=== PATIENT | male | born 1985 | race African-American/Black ===

== ENCOUNTER 2018-05-14 00:12 | Emergency (ER) | payer MEDICAID ==
[~2018-05-14] VITALS: Ht 175.3 cm; Wt 78.0 kg
[~2018-05-14 00:12] MED LIST: LANTUS SOLO STAR
[2018-05-14] MEDS ORDERED: SODIUM CHLORIDE 0.9% 1,000 ML IV ONE ×2 (06:15→07:15)
[2018-05-14 06:28] VITALS: BP 135/82
[2018-05-14 06:41] LABS: BASOPHILS % 1.9 % (0.0-2.0); EOSINOPHILS % 4.7 % (0.0-5.0); HEMATOCRIT. 41.6 % (42.0-52.0); HEMOGLOBIN. 14.4 g/dL (14.0-18.0); LYMPHOCYTES % 46.1 % (20.0-50.0); MEAN CORPUSCULAR HEMOGLOBIN 31.4 pg (28.0-32.0); MEAN CORPUSCULAR VOLUME 90.7 fL (80.0-94.0); MEAN PLATELET VOLUME 6.4 fl (7.4-10.4); MONOCYTES % 9.5 % (2.0-8.0); NEUTROPHILS % 37.8 % (40.0-76.0); PLATELET 702 x1000/uL (130-400); RED BLOOD CELL COUNT 4.58 mill/uL (4.7-6.1)
[2018-05-14 06:47] LABS: CHLORIDE 101 mEq/L (98-107)
[2018-05-14 06:54] LABS: BETA HYDROXYBUTYRATE 0.2 mMol/L (0.0-0.3)
[2018-05-14] MEDS ORDERED: INS NPH/REG HM 70-30 100 UNITS/ML 10ML VIAL (HUMULIN 70-30) SUBCUT ONE (07:15)
== END 2018-05-14 07:45 | disposition home or self-care (01) ==
LOC: ER 00:12
DX: E11.65 Type 2 diabetes mellitus with hyperglycemia (principal); F12.10 Cannabis abuse, uncomplicated; Z79.4 Long term (current) use of insulin
CPT/HCPCS: 36415; 80053; 82010; 82962; 85025; 96372; 99283; J1815; J7030

== ENCOUNTER 2018-08-05 16:19 | Emergency (ER) | payer MEDICAID ==
[~2018-08-05] VITALS: Ht 175.3 cm; Wt 78.0 kg
[2018-08-05 17:15] VITALS: BP 116/69
== END 2018-08-05 19:57 | disposition home or self-care (01) ==
LOC: ER 16:44
DX: E11.9 Type 2 diabetes mellitus without complications (principal); F12.10 Cannabis abuse, uncomplicated
CPT/HCPCS: 99283

== ENCOUNTER 2019-03-03 19:23 | Emergency (ER) | payer MEDICAID ==
[~2019-03-03] VITALS: Ht 175.3 cm; Wt 78.0 kg
[2019-03-03 20:14] VITALS: BP 149/83
[2019-03-03] MEDS ORDERED: ONDANSETRON 4MG ODT PO ONE (20:45)
[2019-03-03] MEDS ORDERED: AMOXICILLIN/POTASSIUM CLAVULANATE 875/125MG TAB PO ONE (20:45)
[2019-03-03] MEDS ORDERED: HYDROCODONE/ACETAMINOPHEN 5/325MG TABLET PO ONE (20:45)
[2019-03-03] MEDS ORDERED: SULFAMETHOXAZOLE/TRIMETHOPRIM 800/160MG TABLET PO ONE (20:45)
[2019-03-03] MEDS ORDERED: TETANUS, DIPHTHERIA, PERTUSSIS VAC/PF 0.5ML (>7YR OLD) IM ONE (21:00)
== END 2019-03-03 21:57 | disposition home or self-care (01) ==
LOC: ER 19:23
DX: N61.0 Mastitis without abscess (principal); E11.9 Type 2 diabetes mellitus without complications
CPT/HCPCS: 87070; 87205; 90471; 90715; 99284; Q0162; Z7610

== ENCOUNTER 2019-03-04 22:48 | Emergency (ER) | payer MEDICAID, OTHER ==
[~2019-03-04] VITALS: Ht 175.3 cm; Wt 80.0 kg
[2019-03-05] MEDS ORDERED: LIDOCAINE HCL/PF 1% 10 MG/ML 5ML VIAL IJ ONE (05:30)
[2019-03-05] MEDS ORDERED: BACITRACIN ZINC OINT UDPKT TOP ONE (05:30)
[2019-03-05 06:59] VITALS: BP 131/85
== END 2019-03-05 07:03 | disposition home or self-care (01) ==
LOC: ER 22:48
DX: N61.1 Abscess of the breast and nipple (principal); E11.9 Type 2 diabetes mellitus without complications; F12.10 Cannabis abuse, uncomplicated; Z79.4 Long term (current) use of insulin
CPT/HCPCS: 99283; J3490; Z7610

== ENCOUNTER 2019-05-03 18:03 | Emergency (ER) | payer MEDICAID ==
[~2019-05-03] VITALS: Ht 175.3 cm; Wt 78.0 kg
[2019-05-03 22:42] VITALS: BP 112/72
== END 2019-05-03 22:49 | disposition home or self-care (01) ==
LOC: ER 18:03
DX: E11.65 Type 2 diabetes mellitus with hyperglycemia (principal); F12.10 Cannabis abuse, uncomplicated
CPT/HCPCS: 82962; 99281; 99283

== ENCOUNTER 2020-08-13 23:25 | Emergency (ER) | payer MEDICAID, OTHER ==
[~2020-08-13] VITALS: Ht 175.3 cm; Wt 75.1 kg
[2020-08-13 23:40] VITALS: BP 146/89
[2020-08-14 00:32] LABS: CLARITY URINE CLEAR (CLEAR); COLOR URINE YELLOW (YELLOW); KETONES URINE TRACE (NEGATIVE); LEUKOCYTE ESTERASE URINE NEGATIVE (NEGATIVE); NITRITE URINE NEGATIVE (NEGATIVE); OCCULT BLOOD URINE NEGATIVE (NEGATIVE); PH URINE 6.5 (4.5-8.0); PROTEIN URINE NEGATIVE (NEGATIVE)
[2020-08-14] MEDS ORDERED: CLOT15CR27 TP (00:45)
== END 2020-08-14 01:44 | disposition home or self-care (01) ==
LOC: ER 23:25
DX: N48.29 Other inflammatory disorders of penis (principal); B00.1 Herpesviral vesicular dermatitis; F12.10 Cannabis abuse, uncomplicated; E11.9 Type 2 diabetes mellitus without complications; Z79.899 Other long term (current) drug therapy
CPT/HCPCS: 81003; 99283

== ENCOUNTER 2021-02-16 02:12 | Emergency (ER) | payer MEDICAID, OTHER ==
[~2021-02-16] VITALS: Ht 175.3 cm; Wt 72.0 kg
[~2021-02-16 02:12] MED LIST changes: +CLOT15CR27 TP
[2021-02-16] MEDS ORDERED: ONDANSETRON HCL 4MG/2ML INJ IV ONE (02:45)
[2021-02-16] MEDS ORDERED: ONDANSETRON 4MG ODT PO ONE (02:45)
[2021-02-16] MEDS ORDERED: HALOPERIDOL LACTATE 5MG/ML VIAL IM ONE (02:45)
[2021-02-16 03:53] LABS: HEMATOCRIT. 45.6 % (42.0-52.0); HEMOGLOBIN. 15.7 g/dL (14.0-18.0); MEAN CORPUSCULAR VOLUME 84.3 fL (80.0-94.0); MEAN PLATELET VOLUME 6.6 fl (7.4-10.4); PLATELET 770 x1000/uL (130-400); RED BLOOD CELL COUNT 5.41 mill/uL (4.7-6.1); RED CELL DISTRIBUTION WIDTH 13.8 % (11.6-14.6)
[2021-02-16 03:55] LABS: CLARITY URINE CLEAR (CLEAR); COLOR URINE YELLOW (YELLOW); KETONES URINE NEGATIVE (NEGATIVE); LEUKOCYTE ESTERASE URINE NEGATIVE (NEGATIVE); NITRITE URINE NEGATIVE (NEGATIVE); OCCULT BLOOD URINE NEGATIVE (NEGATIVE); PH URINE 8.5 (4.5-8.0); PROTEIN URINE TRACE (NEGATIVE); SPECIFIC GRAVITY URINE 1.027 (1.005-1.030)
[2021-02-16 04:04] LABS: CHLORIDE 108 mEq/L (98-107)
[2021-02-16 04:09] LABS: ETHANOL BLOOD < 10 mg/dL
[2021-02-16 04:10] LABS: *AMPHETAMINES SCREEN URINE NEGATIVE (NEGATIVE); *BARBITURATES SCREEN URINE NEGATIVE (NEGATIVE); *BENZODIAZEPINES SCREEN URINE NEGATIVE (NEGATIVE); *COCAINE SCREEN URINE NEGATIVE (NEGATIVE); METHADONE URINE SCREEN NEGATIVE (NEGATIVE); OPIATES URINE SCREEN NEGATIVE (NEGATIVE)
[2021-02-16 04:11] LABS: CANNABINOID URINE SCREEN PRESUMTIVE POSITIVE (NEGATIVE); PHENCYCLIDINE URINE SCREEN NEGATIVE (NEGATIVE)
[2021-02-16 04:13] LABS: BETA HYDROXYBUTYRATE 0.1 mMol/L (0.0-0.3)
[2021-02-16 05:21] VITALS: BP 110/66
[2021-02-16 05:47] LABS: PLATELET ESTIMATE INCREASED
== END 2021-02-16 05:40 | disposition home or self-care (01) ==
LOC: ER 02:12
DX: F12.188 Cannabis abuse with other cannabis-induced disorder (principal); E11.65 Type 2 diabetes mellitus with hyperglycemia; F12.10 Cannabis abuse, uncomplicated
CPT/HCPCS: 36415; 80053; 80305; 80320; 81003; 82010; 82962; 83690; 85025; 93005; 96372; 99284; J1630; Q0162; G0480

== ENCOUNTER 2021-11-04 12:16 | Inpatient (IN) | payer MEDICAID, OTHER ==
[~2021-11-04] VITALS: Ht 175.3 cm; Wt 77.3 kg
[2021-11-04] MEDS ORDERED: SODIUM CHLORIDE 0.9% 1,000 ML IV ONE (12:30)
[2021-11-04 13:17] LABS: BASOPHILS % 0.8 % (0.0-2.0); EOSINOPHILS % 0.8 % (0.0-5.0); HEMATOCRIT. 55.8 % (42.0-52.0); HEMOGLOBIN. 18.7 g/dL (14.0-18.0); LYMPHOCYTES % 10.9 % (20.0-50.0); MEAN CORPUSCULAR HEMOGLOBIN 28.5 pg (28.0-32.0); MEAN CORPUSCULAR VOLUME 85.2 fL (80.0-94.0); MEAN PLATELET VOLUME 6.7 fl (7.4-10.4); MONOCYTES % 6.5 % (2.0-8.0); PLATELET 658 x1000/uL (130-400); RED BLOOD CELL COUNT 6.55 mill/uL (4.7-6.1); RED CELL DISTRIBUTION WIDTH 16.4 % (11.6-14.6)
[2021-11-04 13:31] LABS: CHLORIDE 101 mEq/L (98-107)
[2021-11-04 13:40] LABS: BETA HYDROXYBUTYRATE 4.7 mMol/L (0.0-0.3)
[2021-11-04] MEDS ORDERED: LACTATED RINGERS 1,000 ML IV STA ×4 (13:52→17:52)
[2021-11-04] MEDS ORDERED: INSULIN REGULAR (HUMULIN R) 300UNITS/3ML VIAL IV ONE (14:00)
[2021-11-04] MEDS ORDERED: METOCLOPRAMIDE HCL 10MG/2ML VIAL IV ONE ×2 (14:00→16:00)
[2021-11-04] MEDS ORDERED: ONDANSETRON HCL 4MG/2ML INJ IV ONE (15:45)
[2021-11-04] MEDS ORDERED: INSULIN GLARGINE 100 UNITS/ML SUBCUT ONE (16:00)
[2021-11-04 16:24] LABS: CHLORIDE 106 mEq/L (98-107)
[2021-11-04 16:30] LABS: PHOSPHORUS 2.6 mg/dL (2.5-4.9)
[2021-11-04] MEDS ORDERED: HYDROCODONE/ACETAMINOPHEN 10/325MG TABLET PO PRN (20:30)
[2021-11-04] MEDS ORDERED: ONDANSETRON HCL 4MG/2ML INJ IV PRN (20:30)
[2021-11-04 21:30] VITALS: BP 131/85
[2021-11-04] MEDS ORDERED: DEXTROSE 50% WATER 50ML SYRINGE IV PRN (22:30)
[2021-11-04] MEDS ORDERED: INSU100I28 SQ (22:43)
[2021-11-04] MEDS ORDERED: INSASP SUBCUT (22:44)
[2021-11-04 22:45] VITALS: BP 131/85
[2021-11-05] VITALS (7 sets, daily range): BP systolic 108–129; BP diastolic 60–82
[2021-11-05] MEDS: SODIUM CHLORIDE 0.9% 1,000 ML IV SCH ×3 (01:45→17:38)
[2021-11-05] MEDS: BLOOD SUGAR DIAGNOSTIC STRIP TEST SCH ×4 (06:24→20:59)
[2021-11-05] MEDS: INSULIN LISPRO 100 UNITS/ML SUBCUT SCH ×4 (06:44→21:15)
[2021-11-05] MEDS ORDERED: INSULIN LISPRO 100 UNITS/ML SUBCUT SCH (07:40)
[2021-11-05 08:30] LABS: HEMATOCRIT 48.8 % (42.0-52.0); HEMOGLOBIN 16.5 g/dL (14.0-18.0); MEAN CORPUSCULAR HEMOGLOBIN 28.8 pg (28.0-32.0); MEAN CORPUSCULAR VOLUME 85.5 fL (80.0-94.0); PLATELET 714 x1000/uL (130-400); RED BLOOD CELL COUNT 5.71 mill/uL (4.7-6.1); RED CELL DISTRIBUTION WIDTH 16.5 % (11.6-14.6)
[2021-11-05 08:33] LABS: CHLORIDE 105 mEq/L (98-107)
[2021-11-05] MEDS: INSULIN GLARGINE 100 UNITS/ML SUBCUT SCH ×2 (08:41→17:38)
[2021-11-07 13:06] LABS: HIV SCREEN 4G Non Reactive (Non Reactive)
== END 2021-11-05 21:15 | disposition home or self-care (01) | DRG 420 ==
LOC: ER 12:24 → ENRESERV 18:32 → 8WST 21:30
PROVIDERS: ADMIT Internal Medicine; ATTEND Internal Medicine
DX: E11.10 Type 2 diabetes mellitus with ketoacidosis without coma (principal); B04 Monkeypox; F12.90 Cannabis use, unspecified, uncomplicated; R35.89 Other polyuria; Z79.4 Long term (current) use of insulin
CPT/HCPCS: 36415; 80048; 80053; 82010; 82962; 83036; 83735; 84100; 84145; 85025; 85027; 86592; 87389; 87593; 93005; 99291; J1815; J2405; J2765; J7030; J7120

== ENCOUNTER 2022-07-09 10:56 | Emergency (ER) | payer MEDICAID ==
[~2022-07-09] VITALS: Ht 177.8 cm; Wt 69.0 kg
[~2022-07-09 10:56] MED LIST changes: -CLOT15CR27 TP; +INSASP SUBCUT; +INSU100I28 SQ; -LANTUS SOLO STAR
[2022-07-09] MEDS ORDERED: ONDANSETRON HCL 4MG/2ML INJ IV STA (11:23)
[2022-07-09] MEDS ORDERED: SODIUM CHLORIDE 0.9% 1,000 ML IV ONE ×2 (11:30→12:30)
[2022-07-09 11:44] LABS: BASOPHILS % 0.5 % (0.0-2.0); HEMATOCRIT. 58.4 % (42.0-52.0); HEMOGLOBIN. 19.1 g/dL (14.0-18.0); LYMPHOCYTES % 11.7 % (20.0-50.0); MEAN CORPUSCULAR HEMOGLOBIN 26.3 pg (28.0-32.0); MEAN CORPUSCULAR VOLUME 80.3 fL (80.0-94.0); MEAN PLATELET VOLUME 6.5 fl (7.4-10.4); MONOCYTES % 2.8 % (2.0-8.0); PLATELET 811 x1000/uL (130-400); RED BLOOD CELL COUNT 7.27 mill/uL (4.7-6.1); RED CELL DISTRIBUTION WIDTH 13.6 % (11.6-14.6)
[2022-07-09 11:53] LABS: CHLORIDE 99 mEq/L (98-107)
[2022-07-09 11:59] LABS: BETA HYDROXYBUTYRATE 4.5 mMol/L (0.0-0.3)
[2022-07-09 12:51] LABS: CLARITY URINE CLEAR (CLEAR); COLOR URINE YELLOW (YELLOW); KETONES URINE 4+ (NEGATIVE); LEUKOCYTE ESTERASE URINE NEGATIVE (NEGATIVE); NITRITE URINE NEGATIVE (NEGATIVE); OCCULT BLOOD URINE NEGATIVE (NEGATIVE); PH URINE 5.5 (4.5-8.0); PROTEIN URINE 1+ (NEGATIVE); SPECIFIC GRAVITY URINE 1.027 (1.005-1.030)
[2022-07-09] MEDS ORDERED: ONDA4TAB11 PO (13:06)
[2022-07-09 15:03] VITALS: BP 133/88
== END 2022-07-09 15:25 | disposition home or self-care (01) ==
LOC: ER 11:14
DX: R11.2 Nausea with vomiting, unspecified (principal); E11.65 Type 2 diabetes mellitus with hyperglycemia
CPT/HCPCS: 36415; 80053; 81003; 82010; 83690; 85025; 96361; 96374; 99283; J2405; J7030; Z7610

== ENCOUNTER 2022-07-29 01:34 | Emergency (ER) | payer MEDICAID, OTHER ==
[~2022-07-29] VITALS: Ht 175.3 cm; Wt 75.0 kg
[~2022-07-29 01:34] MED LIST changes: +ONDA4TAB11 PO
[2022-07-29 01:52] VITALS: BP 153/101
[2022-07-29] MEDS ORDERED: ONDANSETRON 4MG ODT PO ONE (02:45)
[2022-07-29 03:34] LABS: EOSINOPHILS % 2.1 % (0.0-5.0); HEMATOCRIT. 56.6 % (42.0-52.0); LYMPHOCYTES % 19.9 % (20.0-50.0); MEAN CORPUSCULAR HEMOGLOBIN 26.5 pg (28.0-32.0); MEAN CORPUSCULAR VOLUME 78.9 fL (80.0-94.0); MEAN PLATELET VOLUME 6.6 fl (7.4-10.4); MONOCYTES % 5.7 % (2.0-8.0); NEUTROPHILS % 71.3 % (40.0-76.0); PLATELET 838 x1000/uL (130-400); RED BLOOD CELL COUNT 7.18 mill/uL (4.7-6.1); RED CELL DISTRIBUTION WIDTH 14.8 % (11.6-14.6)
[2022-07-29 03:42] LABS: CHLORIDE 100 mEq/L (98-107)
[2022-07-29] MEDS ORDERED: ONDANSETRON 4MG ODT PO NR (05:30)
== END 2022-07-29 04:50 | disposition left against medical advice (07) ==
LOC: ER 01:34
DX: R11.0 Nausea (principal); E11.9 Type 2 diabetes mellitus without complications; Z13.9 Encounter for screening, unspecified
CPT/HCPCS: 36415; 80053; 82962; 85025; 99281; 99283

== ENCOUNTER 2023-04-08 13:24 | Emergency (ER) | payer MEDICAID ==
[~2023-04-08] VITALS: Ht 175.3 cm; Wt 75.0 kg
[2023-04-08 13:33] VITALS: O2SAT 95
[2023-04-08 14:19] LABS: HEMATOCRIT. 56.9 % (42.0-52.0); HEMOGLOBIN. 19.4 g/dL (14.0-18.0); MEAN CORPUSCULAR HEMOGLOBIN 26.8 pg (28.0-32.0); MEAN CORPUSCULAR HGB CONC 34.1 g/dL (31.0-37.0); MEAN CORPUSCULAR VOLUME 78.7 fL (80.0-94.0); MEAN PLATELET VOLUME 6.7 fl (7.4-10.4); PLATELET 820 x1000/uL (130-400); RED BLOOD CELL COUNT 7.23 mill/uL (4.7-6.1); RED CELL DISTRIBUTION WIDTH 16.5 % (11.6-14.6); WHITE BLOOD COUNT 11.2 x1000/uL (4.5-11.0)
[2023-04-08 14:28] LABS: ALANINE AMINOTRANSFERASE 28 IU/L (10-49); ALBUMIN 4.4 g/dL (3.2-4.8); ASPARTATE AMINOTRANSFERASE 37 IU/L (<34); BILIRUBIN TOTAL 0.7 mg/dL (0.1-1.0); CALCIUM 9.5 mg/dL (8.7-10.4); CARBON DIOXIDE 26 mEq/L (21-32); CHLORIDE 103 mEq/L (98-107); CREATININE 1.2 mg/dL (0.6-1.3); POTASSIUM 4.1 mEq/L (3.5-5.1); SODIUM 136 mEq/L (136-145); UREA NITROGEN BLOOD 15 mg/dL (9-23)
[2023-04-08 14:29] LABS: GLUCOSE 153 mg/dL (70-105)
[2023-04-08 14:32] LABS: DIFFERENTIAL COMMENT 1
[2023-04-08] MEDS: PANTOPRAZOLE SODIUM 40 MG/VIAL IV STA (14:46)
[2023-04-08] MEDS: SODIUM CHLORIDE 0.9% 1,000 ML IV ONE (14:46)
[2023-04-08] MEDS: MORPHINE SULFATE 4 MG/ML CPJ (NOT FOR IM USE) IV STA (14:46)
[2023-04-08] MEDS: ONDANSETRON HCL 4MG/2ML INJ IV STA (14:46)
[2023-04-08 15:09] LABS: PLATELET ESTIMATE INCREASED
[2023-04-08 15:11] LABS: MICROCYTOSIS 1+
[2023-04-08] MEDS ORDERED: ONDA4TAB50 MT (18:19)
[2023-04-08] MEDS ORDERED: PROT40 MT (18:19)
[2023-04-08 18:50] VITALS: BP 129/77; PULSE 85; RESP 17; TEMP 98.9
[2023-04-08] MEDS ORDERED: IOHEXOL-300 100 ML BOTTLE ONE (23:17)
== END 2023-04-08 18:58 | disposition home or self-care (01) ==
LOC: ER 13:24
DX: R11.2 Nausea with vomiting, unspecified (principal); R10.13 Epigastric pain; E11.9 Type 2 diabetes mellitus without complications; F12.10 Cannabis abuse, uncomplicated; Z79.899 Other long term (current) drug therapy
CPT/HCPCS: 80053; 82962; 83690; 85025; 36415; 74177; 96361; 96374; 96375; 99285; Q9967; J2405; C9113; J2270; J7030; Z7610 ×2

== ENCOUNTER 2023-10-10 12:43 | Emergency (ER) | payer MEDICAID ==
[~2023-10-10] VITALS: Ht 177.8 cm; Wt 73.0 kg
[~2023-10-10 12:43] MED LIST changes: +METO-293 MT; -ONDA4TAB11 PO; +ONDA4TAB50 MT; +PROT40 MT
[2023-10-10 12:49] VITALS: TEMP 98.6; O2SAT 100
[2023-10-10] MEDS: HALOPERIDOL LACTATE 5MG/ML VIAL IM ONE (13:09)
[2023-10-10] MEDS: CAPSAICIN 0.075% CREAM 60GM TOP PRN (13:41)
[2023-10-10 15:16] VITALS: BP 162/92; PULSE 63; RESP 20
[2023-10-10 16:00] LABS: CHLORIDE 102 mEq/L (98-107); POTASSIUM 3.3 mEq/L (3.5-5.1); SODIUM 136 mEq/L (136-145)
[2023-10-10 16:01] LABS: CARBON DIOXIDE 24 mEq/L (21-32)
[2023-10-10 16:03] LABS: BASOPHILS % 1.9 % (0.0-2.0); EOSINOPHILS % 1.2 % (0.0-5.0); HEMATOCRIT. 49.7 % (42.0-52.0); HEMOGLOBIN. 17.1 g/dL (14.0-18.0); LYMPHOCYTES % 18.6 % (20.0-50.0); MEAN CORPUSCULAR HEMOGLOBIN 28.4 pg (28.0-32.0); MEAN CORPUSCULAR HGB CONC 34.5 g/dL (31.0-37.0); MEAN CORPUSCULAR VOLUME 82.5 fL (80.0-94.0); MEAN PLATELET VOLUME 6.7 fl (7.4-10.4); MONOCYTES % 6.1 % (2.0-8.0); NEUTROPHILS % 72.2 % (40.0-76.0); PLATELET 819 x1000/uL (130-400); RED BLOOD CELL COUNT 6.02 mill/uL (4.7-6.1); RED CELL DISTRIBUTION WIDTH 17.4 % (11.6-14.6); WHITE BLOOD COUNT 8.1 x1000/uL (4.5-11.0)
[2023-10-10 16:06] LABS: GLUCOSE 189 mg/dL (70-105); PROTHROMBIN TIME 11.4 sec (9.6-11.0); TROPONIN I HIGH SENSITIVITY 21 ng/L (3.0-53); UREA NITROGEN BLOOD 9 mg/dL (9-23)
[2023-10-10 16:08] LABS: ALANINE AMINOTRANSFERASE 21 IU/L (10-49); ASPARTATE AMINOTRANSFERASE 23 IU/L (<34); BILIRUBIN DIRECT 0.3 mg/dL (<=3.0); BILIRUBIN TOTAL 1.1 mg/dL (0.1-1.0); PROTEIN TOTAL 6.4 g/dL (6.0-8.3)
[2023-10-10 17:30] LABS: CLARITY URINE CLEAR (CLEAR); COLOR URINE YELLOW (YELLOW); GLUCOSE URINE TRACE (NEGATIVE); KETONES URINE 2+ (NEGATIVE); LEUKOCYTE ESTERASE URINE NEGATIVE (NEGATIVE); NITRITE URINE NEGATIVE (NEGATIVE); OCCULT BLOOD URINE NEGATIVE (NEGATIVE); PROTEIN URINE NEGATIVE (NEGATIVE); SPECIFIC GRAVITY URINE 1.044 (1.005-1.030)
[2023-10-10 17:33] LABS: TROPONIN I HIGH SENSITIVITY 25 ng/L (3.0-53)
[2023-10-10 18:13] LABS: BACTERIA URINE NONE SEEN; RBC URINE NONE SEEN /hpf (0-2); SQUAMOUS EPITHELIAL CELL URINE NONE SEEN /lpf (RARE/1+); WBC URINE NONE SEEN /hpf (0-2)
[2023-10-10] MEDS: ACETAMINOPHEN 325MG TABLET PO NR (18:16)
[2023-10-10] MEDS ORDERED: IOHEXOL-300 100 ML BOTTLE ONE (23:45)
== END 2023-10-10 18:39 | disposition home or self-care (01) ==
LOC: ER 12:43
DX: R11.2 Nausea with vomiting, unspecified (principal); F12.10 Cannabis abuse, uncomplicated; E11.9 Type 2 diabetes mellitus without complications; Z79.899 Other long term (current) drug therapy
CPT/HCPCS: 80076; 80048; 81003; 83880; 83690; 85025; 85379; 85610; 84484; 36415; 71045; 74177; 93005; 96372; 99285; Q9967; J1630; Z7610 ×4

== ENCOUNTER 2024-03-02 18:33 | Emergency (ER) | payer MEDICAID ==
[~2024-03-02] VITALS: Ht 182.9 cm; Wt 80.0 kg
[2024-03-02 18:47] VITALS: O2SAT 97
[2024-03-02] MEDS: HALOPERIDOL LACTATE 5MG/ML VIAL IM ONE (20:15)
[2024-03-02] MEDS: ONDANSETRON HCL 4MG/2ML INJ IV STA (20:36)
[2024-03-02 20:37] LABS: MEAN CORPUSCULAR HGB CONC 32.4 g/dL (31.0-37.0); MEAN CORPUSCULAR VOLUME 80.5 fL (80.0-94.0); PLATELET 984 x1000/uL (130-400); RED BLOOD CELL COUNT > 8.00 mill/uL (4.7-6.1); RED CELL DISTRIBUTION WIDTH 15.2 % (11.6-14.6); WHITE BLOOD COUNT 14.6 x1000/uL (4.5-11.0)
[2024-03-02] MEDS: SODIUM CHLORIDE 0.9% 1,000 ML IV ONE ×2 (20:37→22:05)
[2024-03-02] MEDS: MORPHINE SULFATE 4 MG/ML INJ (FOR IV/IM USE) IV STA (20:37)
[2024-03-02 20:43] LABS: CHLORIDE 100 mEq/L (98-107); POTASSIUM 3.9 mEq/L (3.5-5.1); SODIUM 138 mEq/L (136-145)
[2024-03-02 20:44] LABS: CALCIUM 10.7 mg/dL (8.7-10.4); CARBON DIOXIDE 16 mEq/L (21-32)
[2024-03-02 20:46] LABS: DIFFERENTIAL COMMENT 1
[2024-03-02 20:49] LABS: UREA NITROGEN BLOOD 18 mg/dL (9-23)
[2024-03-02 20:51] LABS: ALANINE AMINOTRANSFERASE 49 IU/L (10-49); ALBUMIN 5.1 g/dL (3.2-4.8); ASPARTATE AMINOTRANSFERASE 50 IU/L (<34); BILIRUBIN DIRECT 0.3 mg/dL (<=3.0); BILIRUBIN TOTAL 0.8 mg/dL (0.1-1.0)
[2024-03-02 20:55] LABS: CREATININE 1.7 mg/dL (0.6-1.3); PROTEIN TOTAL 8.9 g/dL (6.0-8.3)
[2024-03-02 20:59] LABS: GLUCOSE 426 mg/dL (70-105)
[2024-03-02] MEDS: KCL 20MEQ/100ML PREMIX 100 ML IV ONE ×2 (21:15)
[2024-03-02 21:24] LABS: PLATELET ESTIMATE MARKEDLY INCREASED
[2024-03-02 21:25] LABS: ANISOCYTOSIS 1+
[2024-03-02 21:29] LABS: INR 1.1; PARTIAL THROMBOPLASTIN TIME 30.2 sec (23.4-31.0); PROTHROMBIN TIME 12.6 sec (9.6-11.0)
[2024-03-02] MEDS: LORAZEPAM 2MG/ML INJ IV ONE (21:40)
[2024-03-02 21:45] LABS: CARBON DIOXIDE 17 mEq/L (21-32)
[2024-03-02 21:50] LABS: CREATININE 1.6 mg/dL (0.6-1.3); UREA NITROGEN BLOOD 20 mg/dL (9-23)
[2024-03-02 21:51] LABS: CHLORIDE 99 mEq/L (98-107); POTASSIUM 4.8 mEq/L (3.5-5.1); SODIUM 137 mEq/L (136-145); TROPONIN I HIGH SENSITIVITY 8 ng/L (3.0-53)
[2024-03-02 21:52] LABS: ETHANOL BLOOD < 10 mg/dL (<10)
[2024-03-02 21:58] LABS: GLUCOSE 400 mg/dL (70-105)
[2024-03-02] MEDS ORDERED: BLOOD SUGAR DIAGNOSTIC STRIP TEST SCH (22:30)
[2024-03-02] MEDS ORDERED: INSULIN REGULAR (DRIP) 100 UNITS in SODIUM CHLORIDE 0.9% 99 ML IV SCH (23:00)
[2024-03-02] MEDS ORDERED: SODIUM PHOSPHATE 15 MMOL in SODIUM CHLORIDE 0.9% 245 ML IV PRN (23:00)
[2024-03-02] MEDS ORDERED: BLOOD SUGAR DIAGNOSTIC STRIP TEST PRN (23:00)
[2024-03-02] MEDS ORDERED: DEXTROSE 50% WATER 50ML SYRINGE IV PRN (23:00)
[2024-03-02] MEDS ORDERED: INSULIN REGULAR 100U/100ML PMX 100 ML IV SCH (23:00)
[2024-03-02] MEDS ORDERED: POTASSIUM CHLORIDE 40 MEQ in SODIUM CHLORIDE 0.9% 230 ML IV PRN (23:00)
[2024-03-02] MEDS ORDERED: CEFTRIAXONE 2,000 MG in DEXT 5% WATER 100 ML IV SCH (23:15)
[2024-03-02 23:57] LABS: BG CARBOXYHEMOGLOBIN 0.3 % (0.5-1.5); BG DEOXYHEMOGLOBIN 3.8 % (0.0-5.0); BG FRACTION INSPIRED OXYGEN 21; BG HCO3 ACT 17.6 mmol/L (21.0-28.0); BG METHEMOGLOBIN 0.7 % (0.5-1.5); BG OXYGEN SATURATION 96.2 % (94.0-98.0); BG OXYHEMOGLOBIN 95.2 % (94.0-98.0); BG PCO2 34.1 mmHg (35.0-48.0); BG PH 7.331 (7.350-7.450); BG PO2 86.6 mmHg (83.0-108.0); BG SAMPLE SITE RIGHT RADIAL; BG TOTAL HEMOGLOBIN 20.4 g/dL (13.5-17.5); BG VENT MODE ROOM AIR
[2024-03-03] MEDS: CEFTRIAXONE 2GM/50ML 50ML IV SCH (00:28)
[2024-03-03 00:44] LABS: CLARITY URINE CLEAR (CLEAR); COLOR URINE YELLOW (YELLOW); GLUCOSE URINE 3+ (NEGATIVE); KETONES URINE 4+ (NEGATIVE); LEUKOCYTE ESTERASE URINE NEGATIVE (NEGATIVE); NITRITE URINE NEGATIVE (NEGATIVE); OCCULT BLOOD URINE NEGATIVE (NEGATIVE); PH URINE 5.5 (4.5-8.0); PROTEIN URINE 3+ (NEGATIVE); SPECIFIC GRAVITY URINE 1.031 (1.005-1.030)
[2024-03-03] MEDS: INSULIN REGULAR (HUMULIN R) 1000UNITS/10ML VIAL IV NR (00:46)
[2024-03-03] MEDS: INSULIN REGULAR 100U/100ML PMX 100 ML IV SCH (00:50)
[2024-03-03] MEDS: BLOOD SUGAR DIAGNOSTIC STRIP TEST SCH (00:55)
[2024-03-03 01:00] LABS: *AMPHETAMINES SCREEN URINE NEGATIVE (NEGATIVE); *BARBITURATES SCREEN URINE NEGATIVE (NEGATIVE); *BENZODIAZEPINES SCREEN URINE NEGATIVE (NEGATIVE); *COCAINE SCREEN URINE PRESUMPTIVE POSITIVE (NEGATIVE)
[2024-03-03 01:01] LABS: CANNABINOID URINE SCREEN PRESUMPTIVE POSITIVE (NEGATIVE); ECSTASY MDMA SCREEN URINE NEGATIVE (NEGATIVE); METHADONE URINE SCREEN NEGATIVE (NEGATIVE); OPIATES URINE SCREEN PRESUMPTIVE POSITIVE (NEGATIVE); PHENCYCLIDINE URINE SCREEN NEGATIVE (NEGATIVE)
[2024-03-03] MEDS: SODIUM CHLORIDE 0.9% 1,000 ML IV PRN (01:38)
[2024-03-03] MEDS: VANCOMYCIN 1.5GM/250ML 250 ML IV NR (01:39)
[2024-03-03] MEDS: DEXT 5%/0.9% NACL 1,000 ML IV PRN (02:15)
[2024-03-03 04:24] LABS: CHLORIDE 112 mEq/L (98-107); CHLORIDE 113 mEq/L (98-107); POTASSIUM 4.1 mEq/L (3.5-5.1); SODIUM 142 mEq/L (136-145); SODIUM 143 mEq/L (136-145)
[2024-03-03 04:25] LABS: CARBON DIOXIDE 22 mEq/L (21-32)
[2024-03-03 04:26] LABS: CALCIUM 8.5 mg/dL (8.7-10.4)
[2024-03-03 04:31] LABS: CREATININE 1.3 mg/dL (0.6-1.3); UREA NITROGEN BLOOD 15 mg/dL (9-23)
[2024-03-03 04:32] LABS: PHOSPHORUS 2.7 mg/dL (2.5-4.9)
[2024-03-03 04:38] LABS: GLUCOSE 204 mg/dL (70-105)
[2024-03-03 05:10] LABS: SQUAMOUS EPITHELIAL CELL URINE FEW /lpf (RARE/1+)
[2024-03-03 05:11] LABS: RBC URINE 0-2 /hpf (0-2); WBC URINE 0-2 /hpf (0-2)
[2024-03-03 05:13] LABS: BACTERIA URINE NONE SEEN
[2024-03-03 05:20] LABS: PHOSPHORUS 2.7 mg/dL (2.5-4.9)
[2024-03-03] MEDS: KCL 20MEQ/100ML PREMIX 100 ML IV PRN (06:28)
[2024-03-03] MEDS: MAGNESIUM 2 G PREMIX 50 ML IV PRN (07:15)
[2024-03-03 07:32] VITALS: BP 140/84; PULSE 98; RESP 15; TEMP 36.89184; O2SAT 100
[2024-03-03] MEDS ORDERED: DOCUSATE SODIUM 100MG CAPSULE PO PRN (08:30)
[2024-03-03] MEDS ORDERED: ACETAMINOPHEN 325MG TABLET PO PRN ×2 (08:30)
[2024-03-03] MEDS ORDERED: IPRATROPIUM/ALBUTEROL 0.5-3(2.5)MG/3ML NEB HHN PRN (08:30)
[2024-03-03] MEDS ORDERED: ONDANSETRON HCL 4MG/2ML INJ IV PRN (08:30)
[2024-03-03] MEDS ORDERED: CLONIDINE 0.1MG TABLET PO PRN (08:30)
[2024-03-03] MEDS: ENOXAPARIN 40MG/0.4ML SYR SUBCUT SCH (10:00)
[2024-03-03] MEDS: INSULIN GLARGINE 100 UNITS/ML SUBCUT SCH (10:00)
[2024-03-03] MEDS: VANCOMYCIN 1G PREMIX 200 ML IV SCH (10:00)
[2024-03-03 10:54] LABS: BASOPHILS % 0.2 % (0.0-2.0); EOSINOPHILS % 0.9 % (0.0-5.0); HEMATOCRIT. 52.7 % (42.0-52.0); HEMOGLOBIN. 17.2 g/dL (14.0-18.0); LYMPHOCYTES % 11.7 % (20.0-50.0); MEAN CORPUSCULAR HEMOGLOBIN 26.3 pg (28.0-32.0); MEAN CORPUSCULAR HGB CONC 32.7 g/dL (31.0-37.0); MEAN CORPUSCULAR VOLUME 80.3 fL (80.0-94.0); MEAN PLATELET VOLUME 6.6 fl (7.4-10.4); MONOCYTES % 7.6 % (2.0-8.0); NEUTROPHILS % 79.6 % (40.0-76.0); PLATELET 830 x1000/uL (130-400); RED BLOOD CELL COUNT 6.57 mill/uL (4.7-6.1); WHITE BLOOD COUNT 17.4 x1000/uL (4.5-11.0)
[2024-03-03 11:06] LABS: D-DIMER < 0.19 mg/L FEU (<0.50); PROTHROMBIN TIME 11.6 sec (9.6-11.0)
[2024-03-03 11:20] LABS: CREATINE KINASE MB FRACTION 3.4 ng/mL (0.5-3.6)
[2024-03-03 11:24] LABS: CARBON DIOXIDE 19 mEq/L (21-32); CHLORIDE 111 mEq/L (98-107); POTASSIUM 4.3 mEq/L (3.5-5.1); SODIUM 141 mEq/L (136-145); T4 FREE 1.06 ng/dL (0.89-1.76); THYROID STIMULATING HORMONE 0.59 uIU/mL (0.55-4.78)
[2024-03-03 11:25] LABS: CALCIUM 8.5 mg/dL (8.7-10.4)
[2024-03-03 11:29] LABS: CREATININE 1.2 mg/dL (0.6-1.3)
[2024-03-03 11:30] LABS: GLUCOSE 276 mg/dL (70-105); TROPONIN I HIGH SENSITIVITY 16 ng/L (3.0-53); UREA NITROGEN BLOOD 15 mg/dL (9-23)
[2024-03-03] MEDS ORDERED: VANCOMYCIN 750MG/150ML (BAXTER) IV SCH (11:30)
[2024-03-03 11:31] LABS: ALANINE AMINOTRANSFERASE 29 IU/L (10-49); ALBUMIN 3.3 g/dL (3.2-4.8); ASPARTATE AMINOTRANSFERASE 30 IU/L (<34); CREATINE KINASE 201 IU/L (46-171)
[2024-03-03 11:32] LABS: BETA HYDROXYBUTYRATE 1.8 mMol/L (0.0-0.3); BILIRUBIN DIRECT 0.3 mg/dL (<=3.0); BILIRUBIN TOTAL 0.8 mg/dL (0.1-1.0); PHOSPHORUS 3.2 mg/dL (2.5-4.9); PROTEIN TOTAL 5.9 g/dL (6.0-8.3)
[2024-03-03] MEDS ORDERED: DILTIAZEM HCL 30MG TABLET PO SCH (14:00)
[2024-03-03] MEDS ORDERED: CEFTRIAXONE 2GM/50ML 50ML IV SCH (21:00)
== END 2024-03-03 15:00 | disposition admitted as inpatient to this hospital (09) ==
LOC: ER 18:33 → EDBEDREQ 22:32 → ER 03-03 15:00
DX: R10.819 Abdominal tenderness, unspecified site (principal); E11.10 Type 2 diabetes mellitus with ketoacidosis without coma; E86.0 Dehydration; E11.65 Type 2 diabetes mellitus with hyperglycemia; F12.10 Cannabis abuse, uncomplicated; Z79.899 Other long term (current) drug therapy; Z79.4 Long term (current) use of insulin
CPT/HCPCS: 80076 ×2; 80048 ×2; 82010 ×2; 80320; 82962 ×2; 83690; 85025 ×2; 85610 ×2; 85730; 86850; 86900; 86901; 84484 ×2; 36415 ×2; 71045; 74176; 82805; 82375; 93005; 96375; 99291; 36600; 80051; 80305; 81003; 82550; 82553; 84439; 84480; 83605; 83735; 83930; 84100; 84443; 85379; 87040; 87086; 84145; 96365; 96366; J3370 ×2; J0696; J1815 ×3; J2060; J2405; J2270; J7030; Z7610 ×2; J1650; J3475; J3480; J1630; J7050; G0480